=== PATIENT | female | born 1960 | race Caucasian/White ===

== ENCOUNTER → 2017-12-22 14:48 | Outpatient (CLI) | payer OTHER, SELFPAY ==
--- NOTE | 2017-12-22 14:51 | DI.RAD.S_ITS ---
PROCEDURE: XR HIP W PEL IF DONE RT 2V INDICATIONS: 57 year-old female with right hip pain. TECHNIQUE: AP pelvis with lateral view(s) of the right hip(s). COMPARISON: None. FINDINGS: Bones: No fractures or dislocations. Pelvic ring appears intact. There is mild asymmetric right hip joint degeneration. No suspicious bony lesions. Soft tissues: The visualized bowel gas pattern is normal. No suspicious soft tissue calcifications. IMPRESSION: Mild asymmetric right hip joint degeneration. Dictated by: Janes Franklin M.D. on 12/22/2017 at 15:51 Approved by: Janes Franklin M.D. on 12/22/2017 at 15:53
--- NOTE | 2017-12-22 14:51 | DI.RAD.S_ITS ---
PROCEDURE: XR LUMBAR SPINE 2-3V INDICATIONS: 57 year-old female with low back pain. TECHNIQUE: 3 views of the lumbar spine were acquired. COMPARISON: [facility], DIANNE, SPINE LUMB 2 OR 3VW, 11/14/2014, 11:37. [facility], DIANNE, L-SPINE 2-3 VIEWS, 03/23/2011, 14:32. FINDINGS: Bones: 5 nonrib-bearing vertebrae are present. There is normal bony alignment. No vertebral body compression fractures. There is mid and lower lumbar spine facet joint degeneration. There is lower thoracic spine disc degeneration. No suspicious bony lesions. Soft tissues: Overlying bowel gas pattern is normal. No suspicious soft tissue calcifications. There is mild aortic atherosclerosis. IMPRESSION: Mid and lower lumbar spine facet joint degeneration, with normal overall bony alignment. Dictated by: Janes Franklin M.D. on 12/22/2017 at 15:48 Approved by: Janes Franklin M.D. on 12/22/2017 at 15:50
--- NOTE | 2017-12-22 14:51 | DI.RAD.S_ITS ---
PROCEDURE: XR KNEE RT 3V INDICATIONS: 57 year-old female with right knee pain. TECHNIQUE: 3 views of the knee were acquired. COMPARISON: [facility], CR, XR KNEE BILATERAL STANDING UP, 09/10/2016, 8:01. [facility], CR, XR KNEE 4VW RT, 05/02/2016, 10:27. FINDINGS: Bones: No fractures or dislocations. Mild medial right knee joint degenerative narrowing is unchanged. No peripheral osteophyte formation. No suspicious bony lesions. Soft tissues: No joint effusion. No suspicious soft tissue calcifications. IMPRESSION: No significant interval change in mild medial right knee joint degeneration. Dictated by: Janes Franklin M.D. on 12/22/2017 at 15:50 Approved by: Janes Franklin M.D. on 12/22/2017 at 15:51
== END ==
PROVIDERS: PCP Family Medicine; Visit Provider Family Medicine
DX: M47.896 Other spondylosis, lumbar region (principal); M17.11 Unilateral primary osteoarthritis, right knee; M16.11 Unilateral primary osteoarthritis, right hip; M54.5 Low back pain
CPT/HCPCS: 72110; 73502; 73562

== ENCOUNTER → 2018-02-21 07:38 | Outpatient (CLI) | payer OTHER, SELFPAY ==
--- NOTE | 2018-02-21 07:40 | DI.MG.S_ITS ---
BILATERAL DIGITAL SCREENING MAMMOGRAM 3D/2D WITH CAD: 02/21/2018 CLINICAL: Routine screening. Family history of breast cancer. Comparison is made to exams dated: 05/24/2015 mammogram, 03/23/2011 mammogram, and 05/26/2005 mammogram - [facility]. The tissue of both breasts is predominantly fatty. Current study was also evaluated with a Computer Aided Detection (CAD) system. No significant masses, calcifications, or other findings are seen in either breast. There has been no significant interval change. IMPRESSION: NEGATIVE There is no mammographic evidence of malignancy. A 1 year screening mammogram is recommended. This exam was interpreted at Station ID: [id number]. NOTE: For mammograms, a report in lay terms will be sent to the patient. Approximately 15% of breast malignancies will not be visualized mammographically. In the management of a palpable breast mass, a negative mammogram must not discourage biopsy of a clinically suspicious lesion. Electronically Signed By: Kimberlyn anders/jenny:02/21/2018 09:26:55 letter sent: Normal Exam ACR BI-RADS Category 1: Negative 3341F
== END ==
PROVIDERS: PCP Family Medicine; Visit Provider Family Medicine
DX: Z12.31 Encounter for screening mammogram for malignant neoplasm of breast (principal); Z80.3 Family history of malignant neoplasm of breast
CPT/HCPCS: 77063; 77067

== ENCOUNTER → 2018-04-13 16:24 | Outpatient (CLI) | payer OTHER, SELFPAY ==
--- NOTE | 2018-04-13 16:26 | DI.RAD.S_ITS ---
PROCEDURE: XR HAND RT MIN 3V INDICATIONS: right thumb pain TECHNIQUE: 3 views of the hand(s) acquired. COMPARISON: [facility], , HAND 3V RIGHT, 12/06/2009, 11:10. FINDINGS: Bones: No fractures or dislocations but there has been interval worsening of the degenerative osteoarthritis and subluxation of the base of the first metacarpal as it articulates against the trapezium. Trauma is not found in this area but rather [id number]-[id number] articulation has developed as has increased osteophytic spurring from the trapezial medial border. Carpal bones are normally aligned. No suspicious bony lesions. Soft tissues: No suspicious soft tissue calcifications. 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 Dictated by: Reginaldo Aquino M.D. on 04/13/2018 at 16:56 Approved by: Reginaldo Aquino M.D. on 04/13/2018 at 16:58
== END ==
PROVIDERS: PCP Family Medicine; Visit Provider Family Medicine
DX: M79.644 Pain in right finger(s) (principal); M19.041 Primary osteoarthritis, right hand
CPT/HCPCS: 73130

== ENCOUNTER → 2018-11-24 10:35 | Outpatient (CLI) | payer OTHER, SELFPAY | PROVIDERS: PCP Family Medicine; Visit Provider Family Medicine | DX: M79.671 Pain in right foot (principal); M79.672 Pain in left foot; G62.9 Polyneuropathy, unspecified | CPT/HCPCS: 95885; 95886; 95910 ==

== ENCOUNTER → 2019-06-23 08:19 | Outpatient (CLI) | payer OTHER, SELFPAY ==
[2019-06-23 08:48] LABS: Add Manual Diff / Slide Review NO; Basophils Absolute Auto 100 /uL (0-100); Basophils Percent Auto 0.7 % (0-2); Eosinophils Absolute Auto 100 /uL (0-450); Eosinophils Percent Auto 1.8 % (2-4); Hematocrit 41.9 % (36-46); Hemoglobin 14.6 g/dL (12.0-16.0); Lymphocytes Absolute Auto 2200 /uL (1100-4500); Lymphocytes Percent Auto 28.3 % (25-40); Mean Corpuscular HGB Conc 34.8 % (30-36); Mean Corpuscular Hemoglobin 31.2 PG (26-34); Mean Corpuscular Volume 89.7 fL (80-100); Monocytes Absolute Auto 400 /uL (0-900); Monocytes Percent Auto 4.8 % (3-14); Neutrophils Absolute Auto 4900 /uL (1500-7000); Neutrophils Percent Auto 64.4 % (50-75); Platelet Count 177 X10^3/uL (150-400); Red Blood Cell Count 4.68 X10^6/uL (4.0-5.2); White Blood Cell Count 7.6 X10^3/uL (4.5-11.0)
[2019-06-23 08:55] LABS: Hemoglobin A1C% w Est Avg Glu 5.7 % (4.0-6.0)
[2019-06-23 09:07] LABS: Alanine Aminotransferase 26 IU/L (<35); Albumin 4.4 g/dL (3.5-5.0); Albumin Globulin Ratio 1.5 (1.0-2.8); Alkaline Phosphatase 68 U/L (38-126); Aspartate Aminotransferase 27 IU/L (14-36); BUN Creatinine Ratio 24.3 (6-22); Bilirubin Total 0.6 mg/dL (0.2-1.3); Blood Urea Nitrogen 17 mg/dL (7-17); Calcium 9.3 mg/dL (8.4-10.2); Carbon Dioxide 31 mmol/L (22-32); Chloride 99 mmol/L (98-107); Cholesterol 200 mg/dL (140-199); Estimated Glomerular Filt Rate > 60.0 mL/min (>60); Glucose 100 mg/dL (70-100); HDL Cholesterol 41 mg/dL (40-60); HEMOLYSIS < 15 (0-50); LDL Cholesterol Calculated 116 mg/dL (<100); Potassium 3.8 mmol/L (3.4-5.1); Sodium 138 mmol/L (137-145); Total Protein 7.4 g/dL (6.3-8.2); Triglycerides 215 mg/dL (35-150)
[2019-06-23 09:42] LABS: Microalbumi Creatinin Ratio Ur 5.4 ug/mg CR (<30); Microalbumin Urine Random < 0.6 mg/dL (0-1.6)
[2019-06-23 10:06] LABS: Thyroid Stimulating Hormone 1.94 uIU/mL (0.47-4.68)
== END ==
PROVIDERS: PCP Family Medicine; Visit Provider Family Medicine
DX: E03.9 Hypothyroidism, unspecified (principal); I10 Essential (primary) hypertension; R73.03 Prediabetes
CPT/HCPCS: 36415; 80053; 80061; 82043; 82570; 83036; 84443; 85025

== ENCOUNTER → 2020-05-14 11:53 | Outpatient (CLI) | payer SELFPAY ==
--- NOTE | 2020-05-14 11:56 | DI.MG.S_ITS ---
BILATERAL DIGITAL DIAGNOSTIC MAMMOGRAM 3D/2D: 05/14/2020 CLINICAL: Right breast tenderness. Comparison is made to exams dated: 02/21/2018 mammogram, 05/24/2015 mammogram, and 03/23/2011 mammogram - [facility]. There are scattered fibroglandular elements in both breasts. No significant masses, calcifications, or other findings are seen in either breast. Specifically, no finding to correspond to the patient's palpable abnormalities or pain. IMPRESSION: NEGATIVE There are no abnormalities seen in the right breast to correspond with the palpable nodularities and pain in the upper outer quadrant which is most likely fibrocystic change. There is no mammographic evidence of malignancy. Mammograms are stable compared to prior years. Return to annual mammogram screening schedule is recommended. Findings and recommendations were conveyed to the patient at time of exam. This exam was interpreted at Station ID: [id number]. NOTE: For mammograms, a report in lay terms will be sent to the patient. Approximately 15% of breast malignancies will not be visualized mammographically. In the management of a palpable breast mass, a negative mammogram must not discourage biopsy of a clinically suspicious lesion. Electronically Signed By: Anastasia wilde/:05/14/2020 12:54:15 letter sent: Normal Exam ACR BI-RADS Category 1: Negative 3341F
== END ==
PROVIDERS: PCP Family Medicine; Referring Provider Obstetrics & Gynecology; Visit Provider Obstetrics & Gynecology
DX: N64.4 Mastodynia (principal); M79.621 Pain in right upper arm; Z80.3 Family history of malignant neoplasm of breast
CPT/HCPCS: 77066; G0279

== ENCOUNTER → 2020-08-19 09:54 | Outpatient (CLI) | payer OTHER, SELFPAY ==
[2020-08-20 14:37] LABS: Fecal Immunochemical Test Negative (Negative)
== END ==
PROVIDERS: PCP Family Medicine; Referring Provider Obstetrics & Gynecology; Visit Provider Obstetrics & Gynecology
DX: Z12.11 Encounter for screening for malignant neoplasm of colon (principal)
CPT/HCPCS: 82274

== ENCOUNTER → 2020-10-23 15:01 | Outpatient (CLI) | payer OTHER, SELFPAY ==
--- NOTE | 2020-10-23 | DI.RAD.S_ITS ---
PROCEDURE: XR LUMBAR SPINE 2-3V INDICATIONS: LOW BACK PAIN TECHNIQUE: 2 views of the lumbar spine were acquired. COMPARISON: [facility], , XR LUMBAR SPINE MIN 4V, 12/22/2017, 14:46. FINDINGS: Bones: 5 [id number] vertebrae are present. There is mild, grade 1 anterolisthesis of L4 on L5. Multilevel disc space narrowing and endplate osteophyte formation. Facet hypertrophy throughout the mid and lower lumbar spine.. No vertebral body compression fractures. No suspicious bony lesions. Soft tissues: Overlying bowel gas pattern is normal. No suspicious soft tissue calcifications. IMPRESSION: Multilevel degenerative disc and facet disease. No acute fracture. No osseous lesion. If symptoms and/or clinical suspicion for pathology persist, further assessment with repeat, or advanced imaging (e.g., CT, MRI, or bone scan) may be helpful for further assessment. Dictated by: Katia Rich M.D. on 10/23/2020 at 16:37 Approved by: Katia Rich M.D. on 10/23/2020 at 16:38
== END ==
PROVIDERS: PCP Family Medicine; Referring Provider Family Medicine; Visit Provider Family Medicine
DX: M54.5 Low back pain (principal); M51.36 Other intervertebral disc degeneration, lumbar region; M47.816 Spondylosis without myelopathy or radiculopathy, lumbar region; M43.16 Spondylolisthesis, lumbar region
CPT/HCPCS: 72100

== ENCOUNTER → 2020-10-24 07:46 | Outpatient (CLI) | payer OTHER, SELFPAY ==
[2020-10-24 08:45] LABS: Alanine Aminotransferase 24 IU/L (<35); Albumin 4.3 g/dL (3.5-5.0); Albumin Globulin Ratio 1.3 (1.0-2.8); Alkaline Phosphatase 66 U/L (38-126); Aspartate Aminotransferase 27 IU/L (14-36); BUN Creatinine Ratio 23.9 (6-22); Bilirubin Total 0.5 mg/dL (0.2-1.3); Blood Urea Nitrogen 17 mg/dL (7-17); Calcium 9.5 mg/dL (8.4-10.2); Carbon Dioxide 31 mmol/L (22-32); Chloride 102 mmol/L (98-107); Cholesterol 204 mg/dL (140-199); Creatinine Urine Random 225.8 mg/dL; Estimated Glomerular Filt Rate > 60.0 mL/min (>60); Globulin 3.4 g/dL (1.7-4.1); Glucose 107 mg/dL (80-110); HDL Cholesterol 48 mg/dL (40-60); HEMOLYSIS < 15 (0-50); LDL Cholesterol Calculated 121 mg/dL (<100); Potassium 3.8 mmol/L (3.4-5.1); Sodium 141 mmol/L (137-145); Total Protein 7.7 g/dL (6.3-8.2); Triglycerides 175 mg/dL (35-150)
[2020-10-24 08:48] LABS: Microalbumi Creatinin Ratio Ur 5.7 ug/mg CR (<30); Microalbumin Urine Random 1.3 mg/dL (0-1.6)
[2020-10-24 09:13] LABS: Thyroid Stimulating Hormone 1.84 uIU/mL (0.47-4.68)
== END ==
PROVIDERS: PCP Family Medicine; Referring Provider Family Medicine; Visit Provider Family Medicine
DX: I10 Essential (primary) hypertension (principal); E03.9 Hypothyroidism, unspecified
CPT/HCPCS: 36415; 80053; 80061; 82043; 82570; 84443

== ENCOUNTER → 2021-10-07 10:57 | Outpatient (CLI) | payer OTHER, SELFPAY ==
--- NOTE | 2021-10-07 10:58 | DI.MG.S_ITS ---
BILATERAL DIGITAL SCREENING MAMMOGRAM 3D/2D WITH CAD: 10/07/2021 CLINICAL: Routine screening. Comparison is made to exams dated: 05/14/2020 mammogram, 02/21/2018 mammogram, 05/24/2015 mammogram, and 03/23/2011 mammogram - [facility]. There are scattered fibroglandular elements in both breasts. Current study was also evaluated with a Computer Aided Detection (CAD) system. No significant masses, calcifications, or other findings are seen in either breast. There has been no significant interval change. IMPRESSION: NEGATIVE There is no mammographic evidence of malignancy. A 1 year screening mammogram is recommended. This exam was interpreted at Station ID: [id number]. NOTE: For mammograms, a report in lay terms will be sent to the patient. Approximately 15% of breast malignancies will not be visualized mammographically. In the management of a palpable breast mass, a negative mammogram must not discourage biopsy of a clinically suspicious lesion. Electronically Signed By: Leeroy roy/jenny:10/07/2021 13:49:30 letter sent: Normal Exam ACR BI-RADS Category 1: Negative 3341F
== END ==
PROVIDERS: PCP Family Medicine; Referring Provider Obstetrics & Gynecology; Visit Provider Obstetrics & Gynecology
DX: Z12.31 Encounter for screening mammogram for malignant neoplasm of breast (principal)
CPT/HCPCS: 77063; 77067

== ENCOUNTER → 2023-07-14 10:17 | Outpatient (CLI) | payer OTHER, SELFPAY ==
--- NOTE | 2023-07-14 | DI.MG.S_ITS ---
BILATERAL DIGITAL SCREENING MAMMOGRAM 3D/2D WITH CAD: 07/14/2023 CLINICAL: Routine screening. Family history of breast cancer. Comparison is made to exams dated: 10/07/2021 mammogram, 05/14/2020 mammogram, and 02/21/2018 mammogram - [facility]. There are scattered areas of fibroglandular density in both breasts (category b / 25%-50% glandular tissue). Current study was also evaluated with a Computer Aided Detection (CAD) system. No significant masses, calcifications, or other findings are seen in either breast. There has been no significant interval change. IMPRESSION: NEGATIVE There is no mammographic evidence of malignancy. A 1 year screening mammogram is recommended. Based on the Tyrer Cuzick model (a risk assessment model) the patient's lifetime risk is 6.2% and her 10 year risk is 2.8%. According to the ACR, ACS, and NCCN guidelines, an annual breast MRI exam along with mammogram is recommended if the patient's lifetime risk is 20% or greater. This exam was interpreted at Station ID: [id number]. NOTE: For mammograms, a report in lay terms will be sent to the patient. Approximately 15% of breast malignancies will not be visualized mammographically. In the management of a palpable breast mass, a negative mammogram must not discourage biopsy of a clinically suspicious lesion. Electronically Signed By: Kimberlyn anders/jenny:07/14/2023 11:13:05 copy to: CHUNG DC letter sent: Normal Exam ACR BI-RADS Category 1: Negative 3341F
== END ==
PROVIDERS: PCP Family Medicine; Referring Provider Obstetrics & Gynecology; Visit Provider Obstetrics & Gynecology
DX: Z12.31 Encounter for screening mammogram for malignant neoplasm of breast (principal); Z80.3 Family history of malignant neoplasm of breast
CPT/HCPCS: 77063; 77067

== ENCOUNTER → 2023-09-24 09:52 | Outpatient (CLI) | payer OTHER, SELFPAY ==
[2023-09-24 11:01] LABS: Free T4, Direct Thyroxine 1.51 ng/dL (0.78-2.19)
[2023-09-24 11:15] LABS: Thyroid Stimulating Hormone 2.19 uIU/mL (0.47-4.68)
== END ==
PROVIDERS: PCP Family Medicine; Referring Provider Obstetrics & Gynecology; Visit Provider Obstetrics & Gynecology
DX: E03.9 Hypothyroidism, unspecified (principal)
CPT/HCPCS: 36415; 84439; 84443